=== PATIENT | male | born 1995 | race African-American/Black ===

== ENCOUNTER 2021-03-01 15:43 | Emergency (ER) | payer MEDICAID ==
[~2021-03-01] VITALS: Ht 182.9 cm; Wt 86.0 kg
[~2021-03-01 15:43] MED LIST: [UNRECOGNIZED DRUG - CODE]
[2021-03-01 15:52] VITALS: BP 120/69
[2021-03-01] MEDS ORDERED: AMOX-424 MT (17:24)
[2021-03-02] MEDS ORDERED: AMOX-424 MT (01:14)
[2021-03-02] MEDS ORDERED: NAPR-1176 MT (01:14)
== END 2021-03-01 17:33 | disposition home or self-care (01) ==
LOC: ER 15:43
DX: K04.7 Periapical abscess without sinus (principal); K02.9 Dental caries, unspecified
CPT/HCPCS: 99282; 99283

== ENCOUNTER 2021-03-02 00:50 | Emergency (ER) | payer MEDICAID ==
[~2021-03-02] VITALS: Ht 182.9 cm; Wt 84.0 kg
[~2021-03-02 00:50] MED LIST changes: +AMOX-424 MT
[2021-03-02] MEDS ORDERED: NAPR-1176 MT (01:14)
[2021-03-02] MEDS ORDERED: AMOX-424 MT (01:14)
[2021-03-02] MEDS ORDERED: IBUPROFEN 600MG TABLET PO ONE (01:15)
[2021-03-02 01:34] VITALS: BP 127/76
== END 2021-03-02 01:38 | disposition home or self-care (01) ==
LOC: ER 00:50
DX: K04.7 Periapical abscess without sinus (principal)
CPT/HCPCS: 99282